=== PATIENT | female | born 1960 | race Caucasian/White ===

== ENCOUNTER 2019-03-28 14:07 | Day surgery (SDC) | payer BC ==
[~2019-03-28] VITALS: Ht 167.6 cm; Wt 59.1 kg
[2019-03-28] MEDS ORDERED: PROTONIX40 MG PO (14:20)
[2019-03-28] MEDS ORDERED: XANAX0.5 MG PO ×2 (14:21→18:16)
[2019-03-28] MEDS ORDERED: BACLOFEN10 MG PO ×2 (14:21→18:15)
[2019-03-28 16:05] LABS: BASOPHILS 0.1 % (0-2); EOSINOPHILS 0.2 % (0-7); HEMATOCRIT 39.6 % (36.0-48.0); HEMOGLOBIN 14.1 g/dL (12-16); IMMATURE GRANULOCYTES 0.2 % (0-5); LYMPHOCYTES 7.9 % (15-50); MCH 32.8 pg (26.0-34.0); MCHC 35.6 g/dL (31.0-37.0); MCV 92.1 fL (80.0-100.0); MEAN PLATELET VOLUME 10.3 fL (7.4-10.4); NEUTROPHILS 83.6 % (40-80); PLATELET COUNT 212 10x3/uL (130-400); RDW 12.9 % (11.5-14.5); WBC 10.7 10x3/uL (4.8-10.8)
[2019-03-28 16:14] LABS: INR 0.99 (0.85-1.17); PROTIME 12.6 SECONDS (11.6-15.0)
[2019-03-28 16:23] LABS: ALKALINE PHOSPHATASE 75 U/L (46-116); ALT (SGPT) 27 U/L (10-68); BILIRUBIN - TOTAL 0.54 mg/dL (0.2-1.3); CALC OSMOLALITY 275 mosm/kg (275-300); CALCIUM 9.1 mg/dL (8.5-10.1); CARBON DIOXIDE 29.7 mmol/L (21.0-32.0); CHLORIDE - SERUM 102 mmol/L (98-107); CREATININE - SERUM 0.8 mg/dL (0.6-1.3); GLUCOSE 111 mg/dL (74-106); POTASSIUM - SERUM 4.3 mmol/L (3.5-5.1); PROTEIN - SERUM 7.4 g/dL (6.4-8.2); SODIUM 138 mmol/L (136-145); UREA NITROGEN 10 mg/dL (7-18); eGFR NON AFRICAN AMERICAN 77 mL/min (90-120)
[2019-03-28 16:30] LABS: CREATINE KINASE 66 UL (21-215); MAGNESIUM - SERUM 2.1 mg/dL (1.8-2.4)
[2019-03-28 16:37] LABS: TROPONIN-I < 0.017 ng/mL (0.000-0.060)
[2019-03-28 20:55] VITALS: BP 112/75
[2019-03-28 22:33] LABS: APPEARANCE CLEAR (CLEAR); BILIRUBIN NEGATIVE (NEGATIVE); COLOR YELLOW (YELLOW); GLUCOSE NEGATIVE (NEGATIVE); KETONE NEGATIVE (NEGATIVE); NITRITE NEGATIVE (NEGATIVE); PROTEIN NEGATIVE (NEGATIVE); SPECIFIC GRAVITY 1.005 (1.005-1.020); UROBILINOGEN NORMAL (NORMAL)
[2019-03-28 22:58] VITALS: BP 112/75; Ht 167.6 cm; Wt 59.1 kg
[2019-03-29 00:18] VITALS: BP 124/70
--- NOTE | 2019-03-29 03:04 | NUR ---
PATIENT IN BED DRESSING CDI TO LEFT HAND. ALERT AND ORENTED ABLE TO VOICE NEEDS AND WANTS TO STAFF. UP AT [place], iV TO RIGHT AC. CALL LIGHT AND WATER IN REACH BED LOW.
[2019-03-29 05:18] VITALS: BP 120/90
[2019-03-29 06:08] LABS: BASOPHILS 0.2 % (0-2); EOSINOPHILS 0.8 % (0-7); HEMATOCRIT 39.4 % (36.0-48.0); HEMOGLOBIN 13.7 g/dL (12-16); IMMATURE GRANULOCYTES 0.3 % (0-5); LYMPHOCYTES 14.9 % (15-50); MCH 32.2 pg (26.0-34.0); MCHC 34.8 g/dL (31.0-37.0); MCV 92.7 fL (80.0-100.0); MEAN PLATELET VOLUME 11.6 fL (7.4-10.4); MONOCYTES 13.7 % (2-11); NEUTROPHILS 70.1 % (40-80); PLATELET COUNT 190 10x3/uL (130-400); RBC 4.25 10x6/uL (4.00-5.40); RDW 13.2 % (11.5-14.5)
[2019-03-29 06:33] LABS: CALC OSMOLALITY 275 mosm/kg (275-300); CALCIUM 9.1 mg/dL (8.5-10.1); CARBON DIOXIDE 27.3 mmol/L (21.0-32.0); CHLORIDE - SERUM 103 mmol/L (98-107); CREATININE - SERUM 0.7 mg/dL (0.6-1.3); GLUCOSE 83 mg/dL (74-106); MAGNESIUM - SERUM 2.1 mg/dL (1.8-2.4); PHOSPHOROUS 4.6 mg/dL (2.5-4.9); SODIUM 140 mmol/L (136-145); UREA NITROGEN 8 mg/dL (7-18); eGFR NON AFRICAN AMERICAN 90 mL/min (90-120)
[2019-03-29 06:49] LABS: WBC 6.1 10x3/uL (4.8-10.8)
--- NOTE | 2019-03-29 07:29 | NUR ---
REC'D IN BED AWAKE AND ALERT. RESP EVEN AND UNLABORED WITH NO DISTRESS NOTED. CAN EXPRESS NEEDS AND WANTS. NO C/O NOTED OR VOICED. ASSESSMENT COMPLETED. C/L IN REACH AT BEDSIDE.
[2019-03-29 08:12] VITALS: BP 95/56
--- NOTE | 2019-03-29 09:04 | NUR ---
medicated with prn pain meds per orders for c/o left wrist pain . c/l in reach at bedside.
[2019-03-29 12:49] VITALS: BP 143/98
[2019-03-29] MEDS ORDERED: DURICEF500 MG PO (12:50)
[2019-03-29] MEDS ORDERED: HYDROCODON-ACE1 EAC7 PO (12:50)
[2019-03-29 13:47] VITALS: BP 99/62
--- NOTE | 2019-03-29 14:41 | NUR ---
I have reviewed this patient and I concur with the Shift Assessment completed by the Licensed Practical Nurse today this shift.
[2019-03-29 16:27] VITALS: BP 98/54
--- NOTE | 2019-03-29 16:50 | NUR ---
DC HOME AT THIS TIME VOICE UNDERSTANDING OF DC INSTRUCTION WITH ULICES AT BEDSIDE. IV DC WITH TIP INTACT. LEFT ARM IN SLING. STABLE CONDITION UPON DEPARTURE.
--- NOTE | 2019-03-30 08:06 | OP ---
PATIENT NAME: DILCIA SANTIAGO MEDICAL RECORD: [id number] :56 LOCATION:[id number] ADMISSION DATE:03/28/19 SURGEON: JASMEET RASCON DO DATE OF OPERATION: 03/29/2019 PROCEDURE PERFORMED: Left distal radius open reduction internal fixation. PREOPERATIVE DIAGNOSIS: Left distal radius intra-articular displaced fracture. POSTOPERATIVE DIAGNOSIS: Left distal radius intra-articular displaced fracture. INDICATIONS: Ms. Santiago is a 58-year-old right hand-dominant female who fell off the stairs yesterday at grandparents day at her grandchild's school event and sustained a left distal radius fracture, it was displaced and very painful to her. She denied any numbness or tingling. No signs of carpal tunnel. I was just called by the ER and told them that she could be admitted for pain control and I get to fix her today. She was okay with that plan. I informed her that I could fix it, she would be at risk for infection, bleeding, damage to nerves and vessels, median nerve damage, nonunion, malunion, and loss of reduction. She was okay with that plan and signed the consent. SURGEON: Jasmeet Rascon DO CODING VALIDATOR: Arlette Candelaria, certified director of first impressions. DESCRIPTION OF PROCEDURE: The patient received a block by anesthesia in the preoperative area and was taken to the operative suite, laid in supine position, given general anesthetic and LMA was placed, given gram of Ancef. The left upper extremity was prepped and draped in sterile fashion. A time-out was performed, everyone was in agreement as to the correct side, site, patient and procedure. The left upper extremity was then exsanguinated with an Esmarch and tourniquet was inflated to 250 mmHg and was up for 28 minutes. The incision was then marked out over the flexor carpi radialis tendon. Once that was done, the incision was made and a careful dissection was made down through the tendon and tendon sheath on the dorsal aspect and then down to the pronator quadratus. Pronator quadratus was then peeled off the radius. Fracture was reduced, a K-wire was placed in the styloid to hold the reduction. Reduction was held very nicely. The plate was put on and once it was in good position, a screw was placed in the shaft and then distal screws in the plate through the guide and through the styloid. This was confirmed to be in good position on AP and lateral, and then 2 more locking screws were placed in the shaft. These were also in good position. The K-wires had been removed then, the tourniquet was let down at 28 minutes. Any bleeding was coagulated with the bipolar. The incision was then closed with 3-0 Vicryl in inverted interrupted fashion, 4-0 Monocryl ran on the skin, Prineo glue on the skin. The patient was placed in a 3 x 12 splint after being dressed with Adaptic, 4 x 4s, and cast padding and the 3 x 12 volar splint was secured in place with Josiah wrap. She was awakened and taken to recovery in stable condition. BLOOD LOSS: Minimal. COMPLICATION: None. TRANSINT:[id number] Voice Confirmation ID: [id number] DOCUMENT ID: [id number] OPERATIVE REPORT [id number] DILCIA SANTIAGO MICHAEL D, DO at 0806 CC: [id number] DICTATION DATE: 03/29/19 1248 WIDTH STRIPPER: 03/29/19 1314 DIS IN 03/29/19 [facility] [address] [place] [address]
== END 2019-03-29 16:55 | disposition home or self-care (01) ==
LOC: OBSVTIME → D.ER 14:07 → D.OPS 14:07 → D.MS 16:31 → D.ER 16:31 → D.MS 16:31 → D.ER 17:45 → OBSVTIME 03-29 07:17 → EDSTATUS 03-29 12:00 → D.MS 03-29 16:55 → D.OPS 03-29 16:55
PROVIDERS: Emergency Medicine; ATTEND Internal Medicine Nephrology
DX: S52.572A Other intraarticular fracture of lower end of left radius, initial encounter for closed fracture (principal)

== ENCOUNTER 2020-12-22 06:36 | Day surgery (SDC) | payer BC ==
--- NOTE | 2020-12-19 10:05 | HP ---
PATIENT: DILCIA SANTIAGO MEDICAL RECORD: [id number] ACCOUNT: [id number] LOCATION:[facility] : 56 ADMISSION DATE: 12/22/20 PCP: KATHLEEN PANIAGUA HISTORY AND PHYSICAL EXAMINATION PREOPERATIVE HISTORY AND PHYSICAL HISTORY OF PRESENT ILLNESS: Ms. 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 She has a history of nasal obstruction. She has had 2 surgeries in the past for nasal obstruction, but now she has developed a significant nasal valve collapse and she has been admitted for correction of bilateral nasal valve collapse and bilateral inferior turbinate reduction. PAST MEDICAL HISTORY: Includes reflux. PAST SURGICAL HISTORY: Nasal surgery twice, tonsillectomy, adenoidectomy, Achilles tendon repair, left distal radius surgery. CURRENT MEDICATIONS: Alprazolam and fluticasone. ALLERGIES: THIMEROSAL. PHYSICAL EXAMINATION: GENERAL: She is healthy appearing, developmentally normal. FACE: Normal and symmetric. No lesions. EYES: Sclerae and conjunctivae are normal. EARS: Canals and TMs are normal. NOSE: She has no masses, polyps, or drainage. Septum is intact, relatively straight. She has got narrow nasal aperture, deep nasal crease and she can perform a Glacier maneuver on herself and that is what relieves her symptoms. The turbinates are large anteriorly near the nasal valve as well. ORAL CAVITY AND OROPHARYNX: Tongue protrudes in the midline. Pharynx normal. NECK: No masses, no adenopathy. CHEST: Clear. CARDIOVASCULAR: Regular rate and rhythm, no murmur. EXTREMITIES: Normal. IMPRESSION: Nasal obstruction. She has had multiple nasal surgeries before, but now she is developing more nasal valve collapse issue. It is more difficult than less predictable repair than what she has had before. We went over that with her what to expect. PLAN: Bilateral correction of nasal valve collapse and bilateral reduction of the anterior aspect of the inferior turbinates on both sides. TRANSINT:[id number] Voice Confirmation ID: [id number] DOCUMENT ID: [id number] HISTORY AND PHYSICAL [id number] DILCIA SANTIAGO, PRASHANT SCHUMACHER at 1005 CC: [id number] DICTATION DATE: 12/17/20 1427 RESIDENTIAL SUPPORT WORKER: 12/17/20 1550 PRE [facility] [address] [place] [address]
[~2020-12-22] VITALS: Ht 167.6 cm; Wt 59.0 kg
--- NOTE | ~2020-12-22 | OP ---
PATIENT NAME: DILCIA HOANG MEDICAL RECORD: [id number] :56 LOCATION:[facility] ADMISSION DATE: SURGEON: PRASAHNT SKINNER MD DATE OF OPERATION: 12/22/2020 PREOPERATIVE DIAGNOSES: Nasal obstruction, nasal valve collapse. SURGEON: Prashant Skinner MD ANESTHESIA: General oral endotracheal. BLOOD LOSS: 1 cc. SPECIMENS: None. NASAL PACKING: Merocel and finger cots bilaterally. COMPLICATIONS: None. DISPOSITION: Recovery, stable. DESCRIPTION OF PROCEDURE: She was brought to the operating room and placed in supine position, sedated and intubated by anesthesia. The eyes were taped. She was positioned, prepped and draped in the usual fashion. The nose was examined. She had multiple previous nasal surgeries. Not much inferior turbinates at all, but at the anterior tip of the inferior turbinates there were some scarring, tethering, really prominent nasal sill with the band across the nose, pulling the nostril in slightly at the base. The lateral nasal sill, mid nasal sill, and the anterior tip of the inferior turbinate were injected bilaterally with a total of less than 0.5 cc of 1% lidocaine with 1:100,000 epinephrine. Nasal cavity was examined and the nasopharynx was suctioned. Really nasal cavity was wide open. All the problem was right at the nasal valve. A #15 blade was used to make a J-shaped incision with the crescent of tissue, removing the band of the nasal sill from the tip of the inferior turbinate down with an incision on the floor, creating a kind of a rotation flap. Cautery was used to stop some bleeding laterally and then closing the incision while pulling the flap on the floor of the nose laterally allowed the lateral alar rim to spread. A couple of very deep 4-0 Vicryl sutures were used to do that while pulling the mucosa laterally to the piriform aperture at the same time and then the nasal sill was closed with interrupted 5-0 Vicryl creating an advancement flap. Portion of the tip of the anterior turbinate was removed in this, but really just the anterior tip of the turbinate was addressed. The same was done on the right side. Once this was accomplished, good nasal opening to the piriform aperture on both sides. With the advancement flap closed on the floor of the nose with a 5-0 Vicryl on both sides and then Merocel sponges and finger cots were placed in both sides of the nose anteriorly for packing and sutured to the anterior membranous septum with a 2-0 Prolene on a Robert needle. She was awakened, extubated, and transported to recovery in good condition. No complications. TRANSINT:[id number] Voice Confirmation ID: [id number] DOCUMENT ID: [id number] OPERATIVE REPORT [id number] DILCIA HOANG ERIC MD CC: [id number] DICTATION DATE: 12/22/20 1006 PERSONAL BANKER: 12/22/20 190 [facility] [place] 12/22/20 [facility] [address] [place] [address]
[~2020-12-22 06:36] MED LIST: BACLOFEN10 MG PO; DURICEF500 MG PO; FLUTICASONE PRO16 GM NASAL; HYDROCODON-ACE1 EAC7 PO; PROTONIX40 MG PO; XANAX0.5 MG PO
[2020-12-22 07:07] LABS: HEMATOCRIT 41.4 % (36.0-48.0); HEMOGLOBIN 13.9 g/dL (12-16); MCH 31.6 pg (26.0-34.0); MCHC 33.6 g/dL (31.0-37.0); MCV 94.3 fL (80.0-100.0); MEAN PLATELET VOLUME 7.9 fL (7.4-10.4); RBC 4.39 10x6/uL (4.00-5.40); RDW 13.3 % (11.5-14.5); WBC 3.5 10x3/uL (4.8-10.8)
[2020-12-22 08:33] VITALS: BP 101/63; Ht 167.6 cm; Wt 59.0 kg
== END 2020-12-22 12:00 | disposition home or self-care (01) ==
LOC: D.OPS 06:36
PROVIDERS: Anesthesiology; ATTEND Otolaryngology
DX: J34.89 Other specified disorders of nose and nasal sinuses (principal); K21.9 Gastro-esophageal reflux disease without esophagitis